=== PATIENT | female | born 1965 | race Caucasian/White ===

== ENCOUNTER 2017-05-07 09:45 | Outpatient (CLI) | payer MEDICARE, MEDICAID ==
--- NOTE | 2017-05-08 15:58 | MMO ---
BILATERAL MAMMOGRAMS: 05/07/17 HISTORY: Screening mammography. COMPARISON: 02/10/16 FINDINGS: Scattered fibroglandular densities are again demonstrated. No dominant mass or suspicious calcificati ons. This study was evaluated with the assistance of computer aided detection. IMPRESSION: BI-RADS 1: Negative Routine annual screening mammography (for women over age 40)
== END 2017-05-07 09:46 | disposition home or self-care (01) ==
LOC: SCSMAMMO 09:45
PROVIDERS: ATTEND Nurse Practitioner Family
DX: Z12.31 Encounter for screening mammogram for malignant neoplasm of breast (principal)
CPT/HCPCS: 77067